=== PATIENT | male | born 1940 | race Caucasian/White ===

== ENCOUNTER 2018-01-10 12:16 | Observation (INO) | payer MEDICARE, OTHER ==
[~2018-01-10] VITALS: Ht 175.3 cm; Wt 93.2 kg
[~2018-01-10 12:16] MED LIST: ALBU8.5H8 IH; ASPI-1094 PO; ATOR80TA PO; BUME1TAB4 PO; CLOP75TA33 PO; DOBUTAMINE IV; FENO145T36 PO; GABA600T2 PO; LINA5TAB4 PO; METO25TA6 PO; PANT-47 PO; POTA10TA15 PO; PRAM1TAB6 PO; TEST60GE2 TOP
[2018-01-10] MEDS ORDERED: aspirin 81mg tab.chew PO ONE (12:20)
[2018-01-10 12:37] LABS: BASOPHILS % (AUTO) 0.3 % (0-1); EOSINOPHILS # (AUTO) 0.2 X10'3 (0-0.9); EOSINOPHILS % (AUTO) 3.7 % (0-6); HEMATOCRIT 51.3 % (42.0-52.0); HEMOGLOBIN 17.1 g/dl (14.0-17.9); LYMPHOCYTES # (AUTO) 0.8 X10'3 (1.1-4.8); LYMPHOCYTES % (AUTO) 13.7 % (21-51); MEAN CORPUSCULAR HEMOGLOBIN 30.5 PG (27.0-31.0); MEAN CORPUSCULAR HGB CONC 33.3 % (33.0-36.5); MEAN CORPUSCULAR VOLUME 91.7 FL (78-98); MEAN PLATELET VOLUME 6.8 FL (7.4-10.4); MONOCYTES # (AUTO) 0.4 X10'3 (0-0.9); MONOCYTES % (AUTO) 7.2 % (2-12); NEUTROPHILS # (AUTO) 4.4 X10'3 (1.8-7.7); NEUTROPHILS % (AUTO) 75.1 % (42-75); PLATELET COUNT 212 X10'3 (140-440); RED BLOOD COUNT 5.59 X10'6 (4.70-6.10); RED CELL DISTRIBUTION WIDTH 15.5 % (11.5-14.5); WHITE BLOOD COUNT 5.8 X10'3 (4.5-11.0)
[2018-01-10 12:55] LABS: ALANINE AMINOTRANSFERASE 30 U/L (12-78); ALBUMIN 4.1 G/DL (3.4-5.0); ALKALINE PHOSPHATASE 92 IU/L (46-116); ANION GAP 8 (8-16); ASPARTATE AMINO TRANSFERASE 32 U/L (10-37); BLOOD UREA NITROGEN 27 MG/DL (7-18); BUN/CREATININE RATIO 18.6 (5.4-32.0); CALCIUM 9.9 MG/DL (8.5-10.1); CHLORIDE 96 MMOL/L (99-107); CREATININE 1.45 MG/DL (0.60-1.10); GLUCOSE 167 MG/DL (70-104); POTASSIUM 3.6 MMOL/L (3.5-5.1); SODIUM 138 MMOL/L (135-145); TOTAL CARBON DIOXIDE 33.9 MMOL/L (24-32); TOTAL PROTEIN 8.1 G/DL (6.4-8.2); eGFR 47 ML/MIN
[2018-01-10 13:04] LABS: MAGNESIUM 1.9 MG/DL (1.5-2.4)
[2018-01-10] MEDS ORDERED: heparin 25,000 UNIT/250ml bag 250 ML IV SCH (13:18)
[2018-01-10] MEDS ORDERED: heparin 10,000 units/1 ML INJ IV PRN (13:20)
[2018-01-10] MEDS ORDERED: heparin 10,000 units/1 ML INJ IV ONE (13:20)
[2018-01-10] MEDS ORDERED: GEMF600T4 PO (13:37)
[2018-01-10] MEDS ORDERED: ASPI-1265 PO (13:37)
[2018-01-10] MEDS ORDERED: SYN0.088T PO (13:37)
[2018-01-10] MEDS ORDERED: WARF2TAB PO (13:37)
[2018-01-10] MEDS ORDERED: CHOL10002 PO (13:37)
[2018-01-10] MEDS ORDERED: ROSU40TA PO (13:37)
[2018-01-10] MEDS ORDERED: MILR20PI IV (13:37)
[2018-01-10] MEDS ORDERED: WARF1TAB PO (13:37)
[2018-01-10 13:45] LABS: INR 2.4 INR; PARTIAL THROMBOPLASTIN TIME 35 SECONDS (22-32); PROTHROMBIN TIME 23.6 SECONDS (9.0-12.0)
[2018-01-10] MEDS ORDERED: potassium Cl 40MEQ/NS 500ml 500 ML IV PRN ×2 (14:05)
[2018-01-10] MEDS ORDERED: acetaminophen 325mg tablet PO PRN (14:05)
[2018-01-10] MEDS ORDERED: magnesium 4gm in 100ml NS 100 ML IV PRN (14:05)
[2018-01-10] MEDS ORDERED: magnesium 1gm/100ml D5W IVPB 100 ML IV PRN (14:05)
[2018-01-10] MEDS ORDERED: potassium Cl 20 mEq SR tablet PO PRN ×2 (14:05)
[2018-01-10] MEDS ORDERED: magnesium Cl slow-release 64mg tablet PO PRN (14:05)
[2018-01-10] MEDS ORDERED: ondansetron/PF 4mg/2ml inj IV PRN (14:05)
[2018-01-10] MEDS ORDERED: docusate sod 100mg capsule PO PRN (14:05)
[2018-01-10 15:21] VITALS: BP 100/58
[2018-01-10 18:00] VITALS: BP 108/70
[2018-01-10] MEDS: heparin, porcine 5000 units/ml vial SQ SCH (20:00)
[2018-01-10] MEDS ORDERED: POTASSIUM CHLORIDE 20 MEQ PO SCH (20:00)
[2018-01-10] MEDS: metoprolol tartrate 25mg tablet PO SCH (20:42)
[2018-01-10] MEDS: gemfibrozil 600mg tablet PO SCH (20:45)
[2018-01-10] MEDS ORDERED: pramipexole 1mg tablet PO SCH (21:00)
[2018-01-10] MEDS ORDERED: atorvastatin 20mg tablet PO SCH (21:00)
[2018-01-10] MEDS ORDERED: warfarin 1mg tablet PO SCH (21:00)
[2018-01-10] MEDS ORDERED: temazepam 15mg capsule PO PRN (21:00)
[2018-01-10] MEDS ORDERED: non-formulary drug (Rosuvastatin Calcium* (Crestor*) 1 TAB) PO SCH (21:00)
[2018-01-10] MEDS: potassium chloride 10mEq ER tablet PO SCH (21:02)
[2018-01-10] MEDS: bumetanide 1mg tablet PO SCH (21:03)
[2018-01-10 22:00] VITALS: BP 113/56
[2018-01-11 01:16] LABS: ALBUMIN 3.5 G/DL (3.4-5.0); ANION GAP 8 (8-16); BLOOD UREA NITROGEN 27 MG/DL (7-18); BUN/CREATININE RATIO 17.8 (5.4-32.0); CALCIUM 9.2 MG/DL (8.5-10.1); CHLORIDE 97 MMOL/L (99-107); CREATININE 1.52 MG/DL (0.60-1.10); GLUCOSE 236 MG/DL (70-104); MAGNESIUM 1.9 MG/DL (1.5-2.4); POTASSIUM 3.1 MMOL/L (3.5-5.1); SODIUM 136 MMOL/L (135-145); eGFR 45 ML/MIN
[2018-01-11 02:00] VITALS: BP 114/65
[2018-01-11 03:01] LABS: BASOPHILS % (AUTO) 0.7 % (0-1); EOSINOPHILS # (AUTO) 0.2 X10'3 (0-0.9); EOSINOPHILS % (AUTO) 2.9 % (0-6); HEMATOCRIT 50.9 % (42.0-52.0); LYMPHOCYTES # (AUTO) 0.8 X10'3 (1.1-4.8); LYMPHOCYTES % (AUTO) 11.3 % (21-51); MEAN CORPUSCULAR HEMOGLOBIN 30.7 PG (27.0-31.0); MEAN CORPUSCULAR HGB CONC 33.5 % (33.0-36.5); MEAN CORPUSCULAR VOLUME 91.6 FL (78-98); MEAN PLATELET VOLUME 7.4 FL (7.4-10.4); MONOCYTES # (AUTO) 0.8 X10'3 (0-0.9); MONOCYTES % (AUTO) 10.8 % (2-12); NEUTROPHILS # (AUTO) 5.4 X10'3 (1.8-7.7); NEUTROPHILS % (AUTO) 74.3 % (42-75); PLATELET COUNT 173 X10'3 (140-440); RED BLOOD COUNT 5.55 X10'6 (4.70-6.10); RED CELL DISTRIBUTION WIDTH 15.9 % (11.5-14.5); WHITE BLOOD COUNT 7.3 X10'3 (4.5-11.0)
[2018-01-11 03:22] LABS: PROTHROMBIN TIME 23.4 SECONDS (9.0-12.0)
[2018-01-11 03:23] LABS: INR 2.4 INR
[2018-01-11 06:42] VITALS: BP 106/68
[2018-01-11] MEDS: heparin, porcine 5000 units/ml vial SQ SCH (07:00)
[2018-01-11] MEDS: potassium chloride 10mEq ER tablet PO SCH (07:10)
[2018-01-11] MEDS: metoprolol tartrate 25mg tablet PO SCH (07:10)
[2018-01-11] MEDS: gemfibrozil 600mg tablet PO SCH (07:11)
[2018-01-11] MEDS: bumetanide 1mg tablet PO SCH (07:11)
[2018-01-11 08:00] VITALS: BP 116/100
[2018-01-11] MEDS ORDERED: K and/or MAG REPLACEMENT MC SCH (08:00)
[2018-01-11] MEDS ORDERED: aspirin 81mg tab.chew PO SCH (08:00)
[2018-01-11] MEDS ORDERED: levoTHYROXINE 25mcg tablet PO SCH (08:00)
[2018-01-11] MEDS ORDERED: pantoprazole 40mg Tablet.DR PO SCH (08:00)
[2018-01-11] MEDS ORDERED: morphine 2 MG/ML inj. syringe IV PRN ×2 (08:35)
[2018-01-11] MEDS ORDERED: LIDOcaine/PRILOcaine 5gm cream TP ONE (08:40)
[2018-01-11] MEDS ORDERED: amiodarone 50MG/ML inj IV ONE (09:30)
[2018-01-11] MEDS ORDERED: WATER IV ONE (09:45)
[2018-01-11] MEDS ORDERED: AMIODARONE IV ONE (09:45)
[2018-01-11] MEDS ORDERED: DEXTROSE 5% IV ONE (09:45)
[2018-01-11 10:00] VITALS: BP 89/47
[2018-01-11 11:46] VITALS: BP 124/103
[2018-01-11] MEDS ORDERED: proCHLORperazine 10 MG/2 ml inj IV ONE (12:20)
[2018-01-11] MEDS ORDERED: HYDR-3964 PO (12:27)
[2018-01-11] MEDS ORDERED: AMIO200T40 PO (12:27)
[2018-01-11] MEDS ORDERED: warfarin 1mg tablet PO SCH (21:00)
== END 2018-01-11 14:35 | disposition home or self-care (01) ==
LOC: ER 12:16 → PCU 3S 14:01
PROVIDERS: ADMIT Internal Medicine; ATTEND Internal Medicine
DX: T82.198A Other mechanical complication of other cardiac electronic device, initial encounter (principal); S46.912A Strain of unspecified muscle, fascia and tendon at shoulder and upper arm level, left arm, initial encounter; I12.9 Hypertensive chronic kidney disease with stage 1 through stage 4 chronic kidney disease, or unspecified chronic kidney disease; E11.22 Type 2 diabetes mellitus with diabetic chronic kidney disease; N18.3 Chronic kidney disease, stage 3 (moderate); E03.9 Hypothyroidism, unspecified; E78.00 Pure hypercholesterolemia, unspecified; I25.10 Atherosclerotic heart disease of native coronary artery without angina pectoris; I95.89 Other hypotension; G47.33 Obstructive sleep apnea (adult) (pediatric); Z66 Do not resuscitate; Z79.01 Long term (current) use of anticoagulants; Z79.84 Long term (current) use of oral hypoglycemic drugs; Z95.810 Presence of automatic (implantable) cardiac defibrillator; X58.XXXA Exposure to other specified factors, initial encounter; Y93.89 Activity, other specified; Y92.89 Other specified places as the place of occurrence of the external cause; Y99.8 Other external cause status
CPT/HCPCS: 36415; 71045; 76882; 80048; 80053; 82948; 83735; 83880; 84484; 85025; 85610; 85730; 87070; 93005; 93306; 96365; 96366; 96375; 96376; 97116; 97162; 97530; 99285; G0378; J0282; J0780; J1644; J2270; J2405; J7060

== ENCOUNTER 2018-02-21 02:48 | Inpatient (IN) | payer MEDICARE, OTHER ==
[~2018-02-21] VITALS: Ht 175.3 cm; Wt 97.0 kg
[~2018-02-21 02:48] MED LIST changes: -ALBU8.5H8 IH; -ASPI-1094 PO; +ASPI-1265 PO; -ATOR80TA PO; +CHOL10002 PO; -CLOP75TA33 PO; -DOBUTAMINE IV; -FENO145T36 PO; +GEMF600T89 PO; +MILR20PI IV; +ROSU40TA PO; +SYN0.088T PO; -TEST60GE2 TOP; +WARF1TAB PO; +WARF2TAB PO
[2018-02-21 03:22] LABS: BASOPHILS % (AUTO) 0.5 % (0-1); EOSINOPHILS # (AUTO) 0.1 X10'3 (0-0.9); EOSINOPHILS % (AUTO) 2.3 % (0-6); HEMATOCRIT 50.5 % (42.0-52.0); HEMOGLOBIN 16.3 g/dl (14.0-17.9); LYMPHOCYTES # (AUTO) 0.9 X10'3 (1.1-4.8); MEAN CORPUSCULAR HEMOGLOBIN 29.4 PG (27.0-31.0); MEAN CORPUSCULAR HGB CONC 32.3 % (33.0-36.5); MEAN CORPUSCULAR VOLUME 91.1 FL (78-98); MEAN PLATELET VOLUME 7.9 FL (7.4-10.4); MONOCYTES # (AUTO) 0.6 X10'3 (0-0.9); NEUTROPHILS % (AUTO) 70.2 % (42-75); PLATELET COUNT 189 X10'3 (140-440); RED BLOOD COUNT 5.54 X10'6 (4.70-6.10); WHITE BLOOD COUNT 5.7 X10'3 (4.5-11.0)
[2018-02-21 03:42] LABS: ALANINE AMINOTRANSFERASE 36 U/L (12-78); ALBUMIN 3.8 G/DL (3.4-5.0); ALBUMIN/GLOBULIN RATIO 1.1 (1.1-1.5); ALKALINE PHOSPHATASE 142 IU/L (46-116); ANION GAP 11 (8-16); ASPARTATE AMINO TRANSFERASE 28 U/L (10-37); BILIRUBIN,TOTAL 1.3 MG/DL (0.1-1.0); BLOOD UREA NITROGEN 34 MG/DL (7-18); BUN/CREATININE RATIO 17.3 (5.4-32.0); CALCIUM 8.9 MG/DL (8.5-10.1); CHLORIDE 96 MMOL/L (99-107); CREATININE 1.96 MG/DL (0.60-1.10); GLUCOSE 120 MG/DL (70-104); POTASSIUM 3.9 MMOL/L (3.5-5.1); SODIUM 137 MMOL/L (135-145); TOTAL CARBON DIOXIDE 29.8 MMOL/L (24-32); TOTAL PROTEIN 7.4 G/DL (6.4-8.2); eGFR 33 ML/MIN
[2018-02-21 03:51] LABS: INR 2.6 INR; PARTIAL THROMBOPLASTIN TIME 34 SECONDS (22-32); PROTHROMBIN TIME 25.5 SECONDS (9.0-12.0)
[2018-02-21] MEDS ORDERED: diphenhydrAMINE 25mg capsule PO PRN (05:20)
[2018-02-21] MEDS ORDERED: morphine 4 MG/ML inj SYRINge IV PRN (05:20)
[2018-02-21] MEDS ORDERED: magnesium hydroxide 30ml (MOM) UD suspension PO PRN (05:20)
[2018-02-21] MEDS ORDERED: metoclopramide 5 mg/ml inj IV PRN (05:20)
[2018-02-21] MEDS ORDERED: acetaminophen 650mg rectal suppository RC PRN (05:20)
[2018-02-21] MEDS ORDERED: HYDROmorphone 1 mg/ml syringe IV PRN (05:20)
[2018-02-21] MEDS ORDERED: mag hydrox/Alum hydrox/simeth 30ml oral suspension PO PRN (05:20)
[2018-02-21] MEDS ORDERED: HYDROcodone/acetaminophen 10/325mg tab PO PRN (05:20)
[2018-02-21] MEDS ORDERED: bisacodyl 10mg suppository rectal RC PRN (05:20)
[2018-02-21] MEDS ORDERED: ondansetron/PF 4mg/2ml inj IV PRN (05:20)
[2018-02-21] MEDS ORDERED: diphenhydrAMINE 50 mg/ml inj IV PRN (05:20)
[2018-02-21] MEDS ORDERED: acetaminophen 325mg tablet PO PRN ×2 (05:20)
[2018-02-21] MEDS ORDERED: CefTRIAXone 2gm/D5W 50ml 50 ML IV ONE (06:05)
[2018-02-21] MEDS: normal saline 1000ml 1,000 ML IV SCH ×2 (06:34→16:12)
[2018-02-21] MEDS: docusate sod 100mg capsule PO SCH ×2 (06:34→20:00)
[2018-02-21 10:15] LABS: ETHANOL < 0.010 GM/DL (0.0-0.010); MAGNESIUM 2.3 MG/DL (1.5-2.4); PHOSPHORUS 3.7 MG/DL (2.3-4.5)
--- NOTE | 2018-02-21 13:57 | NUR ---
RN UNABLE TO TAKE REPORT SAID THEY WILL CALL US
--- NOTE | 2018-02-21 15:30 | NUR ---
patient arrived to ACCE alert, oriented, calm, and cooperative. ambulating independently. denies pain, dizziness, or any issues at this time. home dobutamine pump running. vital signs stable.
[2018-02-21 15:45] VITALS: BP 118/70
[2018-02-21 19:00] VITALS: BP 138/82
[2018-02-21] MEDS: gemfibrozil 600mg tablet PO SCH (20:21)
[2018-02-21] MEDS: gabapentin 300mg capsule PO SCH (20:22)
[2018-02-21] MEDS: potassium Cl 20 mEq SR tablet PO SCH (20:22)
[2018-02-21] MEDS ORDERED: pramipexole 1mg tablet PO ONE (20:35)
[2018-02-21] MEDS ORDERED: warfarin 1mg tablet PO SCH (21:00)
[2018-02-21] MEDS ORDERED: temazepam 15mg capsule PO PRN (21:00)
[2018-02-21] MEDS ORDERED: atorvastatin 20mg tablet PO SCH (21:00)
[2018-02-21] MEDS: bumetanide 1mg tablet PO SCH (21:16)
[2018-02-21 23:00] VITALS: BP 123/68
[2018-02-22] MEDS: normal saline 1000ml 1,000 ML IV SCH ×2 (01:19→11:19)
[2018-02-22 02:00] VITALS: BP 110/74
--- NOTE | 2018-02-22 06:29 | NUR ---
Patient in room MED 308. I have received report from JUAN PABLO Laws and had the opportunity to ask questions and assume patient care.
[2018-02-22 06:30] VITALS: BP 129/64
[2018-02-22 06:52] LABS: BASOPHILS % (AUTO) 0.3 % (0-1); EOSINOPHILS # (AUTO) 0.1 X10'3 (0-0.9); EOSINOPHILS % (AUTO) 2.6 % (0-6); HEMATOCRIT 48.4 % (42.0-52.0); HEMOGLOBIN 15.7 g/dl (14.0-17.9); LYMPHOCYTES # (AUTO) 0.8 X10'3 (1.1-4.8); LYMPHOCYTES % (AUTO) 14.6 % (21-51); MEAN CORPUSCULAR HGB CONC 32.4 % (33.0-36.5); MEAN CORPUSCULAR VOLUME 89.4 FL (78-98); MONOCYTES # (AUTO) 0.6 X10'3 (0-0.9); MONOCYTES % (AUTO) 10.8 % (2-12); NEUTROPHILS # (AUTO) 3.8 X10'3 (1.8-7.7); NEUTROPHILS % (AUTO) 71.7 % (42-75); PLATELET COUNT 175 X10'3 (140-440); RED BLOOD COUNT 5.41 X10'6 (4.70-6.10); RED CELL DISTRIBUTION WIDTH 15.8 % (11.5-14.5); WHITE BLOOD COUNT 5.3 X10'3 (4.5-11.0)
[2018-02-22 07:06] LABS: INR 2.8 INR; PROTHROMBIN TIME 26.6 SECONDS (9.0-12.0)
[2018-02-22 07:11] LABS: ALANINE AMINOTRANSFERASE 31 U/L (12-78); ALBUMIN 3.6 G/DL (3.4-5.0); ALKALINE PHOSPHATASE 128 IU/L (46-116); ANION GAP 12 (8-16); ASPARTATE AMINO TRANSFERASE 21 U/L (10-37); BILIRUBIN,TOTAL 1.2 MG/DL (0.1-1.0); BLOOD UREA NITROGEN 30 MG/DL (7-18); BUN/CREATININE RATIO 17.2 (5.4-32.0); CALCIUM 8.7 MG/DL (8.5-10.1); CHLORIDE 99 MMOL/L (99-107); CHOL/HDL RATIO 4.2 (0.00-4.99); CHOLESTEROL 157 MG/DL (0-200); CREATININE 1.74 MG/DL (0.60-1.10); GLUCOSE 109 MG/DL (70-104); HDL CHOLESTEROL 37 MG/DL (35-60); LDL CHOLESTEROL 100 MG/DL (50-100); POTASSIUM 3.6 MMOL/L (3.5-5.1); SODIUM 141 MMOL/L (135-145); TOTAL CARBON DIOXIDE 29.9 MMOL/L (24-32); TOTAL PROTEIN 7.1 G/DL (6.4-8.2); TRIGLYCERIDES 91 MG/DL (20-135); eGFR 38 ML/MIN
[2018-02-22] MEDS: potassium Cl 20 mEq SR tablet PO SCH (07:53)
[2018-02-22] MEDS: docusate sod 100mg capsule PO SCH ×2 (07:53→07:57)
[2018-02-22] MEDS: gabapentin 300mg capsule PO SCH ×2 (07:54→13:11)
[2018-02-22] MEDS: gemfibrozil 600mg tablet PO SCH (07:57)
[2018-02-22] MEDS: bumetanide 1mg tablet PO SCH (07:58)
[2018-02-22] MEDS ORDERED: pantoprazole 40mg Tablet.DR PO SCH (08:00)
[2018-02-22] MEDS ORDERED: vitamin D (cholecalciferol) 1,000 unit tablet PO SCH (08:00)
[2018-02-22] MEDS ORDERED: levoTHYROXINE 25mcg tablet PO SCH (08:00)
[2018-02-22] MEDS ORDERED: linagliptin 5mg tablet PO SCH (08:00)
[2018-02-22] MEDS ORDERED: aspirin 81mg tab.chew PO SCH (08:00)
--- NOTE | 2018-02-22 10:23 | NUR ---
Called [employer] to have AICD interrogated. They will page out local sales representative supervisor.
[2018-02-22 11:30] VITALS: BP 127/69
[2018-02-22] MEDS ORDERED: METO25TA6 PO (11:31)
--- NOTE | 2018-02-22 13:19 | NUR ---
[employer] arborist representative at bedside to interrogate AICD.
--- NOTE | 2018-02-22 14:43 | NUR ---
AICD functioning properly per [employer] internet sales representative. Pt aware. IV dc'd. No new scripts. Discharged home via wc with family.
--- NOTE | 2018-02-22 14:44 | NUR ---
Pt has appointment with Dr López on March 07.
[2018-02-22] MEDS ORDERED: warfarin 1mg tablet PO SCH (21:00)
[2018-02-22] MEDS ORDERED: pramipexole 1mg tablet PO SCH (21:00)
[2018-02-22] MEDS ORDERED: WARFARIN SODIUM 1.5 MG PO SCH (21:00)
== END 2018-02-22 14:40 | disposition home health service (06) | DRG 682 ==
LOC: ER 02:49 → ED HOLD 05:19 → EDBEDREQ 13:41 → MED 3N 15:40
PROVIDERS: ADMIT Family Medicine; ATTEND Family Medicine
PROC: 5A09357 Assistance with Respiratory Ventilation, Less than 24 Consecutive Hours, Continuous Positive Airway Pressure (ICD-10-PCS; principal; 2018-02-21)
DX: N17.9 Acute kidney failure, unspecified (principal); J18.1 Lobar pneumonia, unspecified organism; R55 Syncope and collapse; E86.1 Hypovolemia; I50.9 Heart failure, unspecified; R00.1 Bradycardia, unspecified; E11.65 Type 2 diabetes mellitus with hyperglycemia; E03.9 Hypothyroidism, unspecified; E78.00 Pure hypercholesterolemia, unspecified; I11.0 Hypertensive heart disease with heart failure; I25.10 Atherosclerotic heart disease of native coronary artery without angina pectoris; Z79.899 Other long term (current) drug therapy; Z79.82 Long term (current) use of aspirin; Z79.890 Hormone replacement therapy; Z79.84 Long term (current) use of oral hypoglycemic drugs; Z82.49 Family history of ischemic heart disease and other diseases of the circulatory system
CPT/HCPCS: 36415; 70450; 71045; 80053; 80061; 80320; 82948; 83036; 83735; 83880; 84100; 84484; 85025; 85610; 85730; 87070; 93005; 93880; 99285; G0378; J0696; J7030

== ENCOUNTER 2018-03-04 15:09 | Emergency (ER) | payer MEDICARE, OTHER ==
[~2018-03-04] VITALS: Ht 175.3 cm; Wt 102.3 kg
[~2018-03-04 15:09] MED LIST changes: +GABA600T13 PO; -GABA600T2 PO
--- NOTE | 2018-03-04 16:10 | NUR ---
ASSUMED CARE OF PATIENT, PATIENT TO ROOM FROM LOBBY. PATIENT DON GOWN AND GIVEN WARM BLANKET. 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 AT BEDSIDE.
[2018-03-04 16:15] LABS: BASOPHILS % (AUTO) 0.3 % (0-1); EOSINOPHILS # (AUTO) 0.1 X10'3 (0-0.9); EOSINOPHILS % (AUTO) 1.3 % (0-6); LYMPHOCYTES # (AUTO) 0.8 X10'3 (1.1-4.8); LYMPHOCYTES % (AUTO) 18.2 % (21-51); MEAN CORPUSCULAR HEMOGLOBIN 29.1 PG (27.0-31.0); MEAN CORPUSCULAR VOLUME 90.9 FL (78-98); MEAN PLATELET VOLUME 7.4 FL (7.4-10.4); MONOCYTES # (AUTO) 0.5 X10'3 (0-0.9); MONOCYTES % (AUTO) 12.4 % (2-12); NEUTROPHILS # (AUTO) 2.8 X10'3 (1.8-7.7); NEUTROPHILS % (AUTO) 67.8 % (42-75); PLATELET COUNT 192 X10'3 (140-440); RED BLOOD COUNT 5.84 X10'6 (4.70-6.10); RED CELL DISTRIBUTION WIDTH 16.4 % (11.5-14.5); WHITE BLOOD COUNT 4.2 X10'3 (4.5-11.0)
[2018-03-04] MEDS ORDERED: meclizine 12.5mg tablet PO ONE (16:25)
[2018-03-04 16:34] LABS: ALANINE AMINOTRANSFERASE 32 U/L (12-78); ALBUMIN 3.8 G/DL (3.4-5.0); ALKALINE PHOSPHATASE 126 IU/L (46-116); ANION GAP 8 (8-16); ASPARTATE AMINO TRANSFERASE 30 U/L (10-37); BILIRUBIN,TOTAL 1.6 MG/DL (0.1-1.0); BLOOD UREA NITROGEN 37 MG/DL (7-18); BUN/CREATININE RATIO 18.1 (5.4-32.0); CALCIUM 8.7 MG/DL (8.5-10.1); CHLORIDE 99 MMOL/L (99-107); CREATININE 2.04 MG/DL (0.60-1.10); GLUCOSE 97 MG/DL (70-104); PARTIAL THROMBOPLASTIN TIME 39 SECONDS (22-32); POTASSIUM 3.8 MMOL/L (3.5-5.1); PROTHROMBIN TIME 29.1 SECONDS (9.0-12.0); SODIUM 139 MMOL/L (135-145); TOTAL CARBON DIOXIDE 32.1 MMOL/L (24-32); TOTAL PROTEIN 7.5 G/DL (6.4-8.2); eGFR 32 ML/MIN
[2018-03-04 16:52] LABS: CLARITY,URINE CLEAR (Clear); COLOR,URINE YELLOW (Yellow); GLUCOSE, URINE NEGATIVE (Neg); KETONES,URINE NEGATIVE (Neg); LEUKOCYTE ESTERASE ,URINE NEGATIVE (Neg); NITRITES, URINE NEGATIVE (Neg); OCCULT BLOOD,URINE MODERATE (Neg); PH,URINE 5.5 (4.8-8.0); PROTEIN,URINE TRACE mg/dl (Neg)
[2018-03-04 16:54] LABS: UA COLLECTION TYPE CLN CATCH MIDSTREAM
[2018-03-04 17:03] LABS: MUCUS STRANDS FEW /LPF (Neg); SQUAMOUS EPITHELIAL CELL,UR FEW /LPF (FEW)
[2018-03-04 17:04] LABS: BACTERIA,URINE NONE SEEN /HPF (Neg); WBC,URINE 0-4 /HPF (0-4)
[2018-03-04] MEDS ORDERED: MECL12.584 PO (17:10)
[2018-03-04 17:20] VITALS: BP 134/54
== END 2018-03-04 17:23 | disposition home or self-care (01) ==
LOC: ER 15:10
DX: R42 Dizziness and giddiness (principal); H55.09 Other forms of nystagmus; I25.10 Atherosclerotic heart disease of native coronary artery without angina pectoris; E78.00 Pure hypercholesterolemia, unspecified; I10 Essential (primary) hypertension; E11.9 Type 2 diabetes mellitus without complications; E03.9 Hypothyroidism, unspecified; Z95.0 Presence of cardiac pacemaker; Z79.01 Long term (current) use of anticoagulants; Z79.899 Other long term (current) drug therapy; Z79.82 Long term (current) use of aspirin
CPT/HCPCS: 36415; 71045; 80053; 81001; 83880; 84145; 84484; 85025; 85610; 85730; 93005; 99284; J8597

== ENCOUNTER 2018-03-19 15:32 | Inpatient (IN) | payer MEDICARE, OTHER ==
[~2018-03-19] VITALS: Ht 177.8 cm; Wt 91.0 kg
[~2018-03-19 15:32] MED LIST changes: +MECL12.584 PO
[2018-03-19 16:27] LABS: BASOPHILS % (AUTO) 0.2 % (0-1); EOSINOPHILS # (AUTO) 0.1 X10'3 (0-0.9); EOSINOPHILS % (AUTO) 0.8 % (0-6); HEMATOCRIT 53.1 % (42.0-52.0); HEMOGLOBIN 17.1 g/dl (14.0-17.9); LYMPHOCYTES # (AUTO) 0.6 X10'3 (1.1-4.8); LYMPHOCYTES % (AUTO) 7.7 % (21-51); MEAN CORPUSCULAR HGB CONC 32.1 % (33.0-36.5); MEAN CORPUSCULAR VOLUME 90.2 FL (78-98); MEAN PLATELET VOLUME 7.4 FL (7.4-10.4); MONOCYTES # (AUTO) 0.8 X10'3 (0-0.9); MONOCYTES % (AUTO) 10.3 % (2-12); NEUTROPHILS # (AUTO) 6.6 X10'3 (1.8-7.7); PLATELET COUNT 193 X10'3 (140-440); RED BLOOD COUNT 5.89 X10'6 (4.70-6.10); RED CELL DISTRIBUTION WIDTH 16.7 % (11.5-14.5); WHITE BLOOD COUNT 8.1 X10'3 (4.5-11.0)
[2018-03-19 16:42] LABS: ALANINE AMINOTRANSFERASE 18 U/L (12-78); ALBUMIN 3.5 G/DL (3.4-5.0); ALBUMIN/GLOBULIN RATIO 0.9 (1.1-1.5); ALKALINE PHOSPHATASE 112 IU/L (46-116); ANION GAP 11 (8-16); ASPARTATE AMINO TRANSFERASE 19 U/L (10-37); BLOOD UREA NITROGEN 36 MG/DL (7-18); BUN/CREATININE RATIO 17.3 (5.4-32.0); CALCIUM 8.8 MG/DL (8.5-10.1); CHLORIDE 95 MMOL/L (99-107); CREATININE 2.08 MG/DL (0.60-1.10); GLUCOSE 135 MG/DL (70-104); POTASSIUM 4.3 MMOL/L (3.5-5.1); SODIUM 135 MMOL/L (135-145); TOTAL CARBON DIOXIDE 29.1 MMOL/L (24-32); TOTAL PROTEIN 7.2 G/DL (6.4-8.2); eGFR 31 ML/MIN
[2018-03-19 17:09] LABS: INR 3.9 INR; PARTIAL THROMBOPLASTIN TIME 42 SECONDS (22-32); PROTHROMBIN TIME 36.8 SECONDS (9.0-12.0)
--- NOTE | 2018-03-19 17:36 | NUR ---
BACK FROM CT SCAN
[2018-03-19] MEDS ORDERED: insulin Lispro (HumaLOG) vial - multi-dose SQ SCH (20:10)
[2018-03-19] MEDS ORDERED: dextrose 50%-water 50ml dispensing syringe IV PRN ×2 (20:10)
[2018-03-19] MEDS ORDERED: dextrose ORAL solution 15 GM/59 ML bottle PO PRN ×2 (20:10)
[2018-03-19] MEDS ORDERED: MESSAGE TO PHARMACY PO ONE (20:10)
[2018-03-19] MEDS ORDERED: mag hydrox/Alum hydrox/simeth 30ml oral suspension PO PRN (20:10)
[2018-03-19] MEDS ORDERED: acetaminophen 325mg tablet PO PRN ×2 (20:10)
[2018-03-19] MEDS ORDERED: magnesium hydroxide 30ml (MOM) UD suspension PO PRN (20:10)
[2018-03-19] MEDS ORDERED: glucagon, human recombinant 1mg kit SUBCUT PRN (20:10)
[2018-03-19] MEDS ORDERED: ondansetron/PF 4mg/2ml inj IV PRN (20:10)
[2018-03-19] MEDS ORDERED: meclizine 12.5mg tablet PO PRN (20:20)
[2018-03-19] MEDS: polyethylene glycol 3350 17gm powd pack PO SCH (21:24)
[2018-03-19] MEDS: furosemide 10 MG/1 ML 10ml inj IV SCH (21:25)
[2018-03-19] MEDS: gabapentin 300mg capsule PO SCH (21:29)
[2018-03-19] MEDS: atorvastatin 20mg tablet PO SCH (21:29)
[2018-03-19 21:30] VITALS: BP 149/93
[2018-03-19 21:45] VITALS: BP 144/84
[2018-03-19 22:00] VITALS: BP 124/96
[2018-03-19] MEDS: insulin glargine (Lantus) pen - multi-dose SQ SCH (22:14)
[2018-03-19 22:15] VITALS: BP 128/69
[2018-03-19] MEDS: pramipexole 1mg tablet PO SCH (22:23)
[2018-03-19] MEDS: HYDROcodone/acetaminophen 5mg/325mg tablet PO PRN (22:23)
[2018-03-19 22:30] VITALS: BP 127/72
[2018-03-19 23:00] VITALS: BP 122/66
--- NOTE | 2018-03-19 23:04 | NUR ---
spoke with dr. handy re plan for am. no PPM prep needed at thist anuradha, unsure of plan due to high INR. orders for Vitamin K, labs, and NPO at midnight. Paracentesis will also depend on INR
[2018-03-19] MEDS ORDERED: phytonadione inj. 1 MG in normal saline 100ml IV soln 99.9 ML IV ONE (23:05)
[2018-03-19] MEDS: DOBUTAMINE IV SCH (23:06)
[2018-03-20] VITALS (11 sets, daily range): BP systolic 100–123; BP diastolic 43–90
--- NOTE | 2018-03-20 06:34 | NUR ---
Patient in room PCU 3026. I have received report from JUAN PABLO Fallon and had the opportunity to ask questions and assume patient care.
--- NOTE | 2018-03-20 06:34 | NUR ---
Problems reprioritized. Patient report given, questions answered & plan of care reviewed with Dinora ALMEIDA.
[2018-03-20] MEDS ORDERED: bumetanide 1mg tablet PO SCH (08:00)
--- NOTE | 2018-03-20 08:03 | NUR ---
Paged Dr. Hernandez. PAGER ID: [phone] MESSAGE: [phone]. Is the Pt. going for a procedure today, need to know if all medications are to be administered. Thanks Isabel [id number] Addendum: 03/20/18 at 0808 by Isabel Da Silva RN Okay to give morning medications per Dr. Hernandez.
[2018-03-20] MEDS: levoTHYROXINE 25mcg tablet PO SCH (08:14)
[2018-03-20] MEDS: furosemide 10 MG/1 ML 10ml inj IV SCH ×2 (08:15→20:00)
[2018-03-20] MEDS: potassium Cl 20 mEq SR tablet PO SCH ×2 (08:16→20:52)
[2018-03-20] MEDS: DOBUTAMINE IV SCH ×2 (08:16→16:31)
[2018-03-20] MEDS: gemfibrozil 600mg tablet PO SCH ×2 (08:16→20:51)
[2018-03-20] MEDS: aspirin 81mg tab.chew PO SCH (08:16)
[2018-03-20] MEDS: gabapentin 300mg capsule PO SCH ×2 (08:17→20:50)
[2018-03-20] MEDS: linagliptin 5mg tablet PO SCH (08:17)
[2018-03-20] MEDS: pantoprazole 40mg Tablet.DR PO SCH (08:17)
[2018-03-20] MEDS: metoprolol tartrate 12.5mg (1/2 tablet) PO SCH ×2 (08:17→20:51)
[2018-03-20] MEDS: vitamin D (cholecalciferol) 1,000 unit tablet PO SCH (08:18)
[2018-03-20] MEDS: polyethylene glycol 3350 17gm powd pack PO SCH ×2 (09:00→20:50)
[2018-03-20 09:22] LABS: HEMATOCRIT 48.3 % (42.0-52.0); HEMOGLOBIN 16.1 g/dl (14.0-17.9); MEAN CORPUSCULAR HEMOGLOBIN 29.4 PG (27.0-31.0); MEAN CORPUSCULAR HGB CONC 33.3 % (33.0-36.5); MEAN CORPUSCULAR VOLUME 88.4 FL (78-98); MEAN PLATELET VOLUME 7.4 FL (7.4-10.4); PLATELET COUNT 168 X10'3 (140-440); RED BLOOD COUNT 5.46 X10'6 (4.70-6.10); RED CELL DISTRIBUTION WIDTH 16.7 % (11.5-14.5); WHITE BLOOD COUNT 5.1 X10'3 (4.5-11.0)
[2018-03-20 09:32] LABS: ALBUMIN 3.3 G/DL (3.4-5.0); ANION GAP 11 (8-16); BLOOD UREA NITROGEN 36 MG/DL (7-18); BUN/CREATININE RATIO 20.9 (5.4-32.0); CALCIUM 8.6 MG/DL (8.5-10.1); CHLORIDE 97 MMOL/L (99-107); CREATININE 1.72 MG/DL (0.60-1.10); GLUCOSE 93 MG/DL (70-104); POTASSIUM 3.4 MMOL/L (3.5-5.1); SODIUM 137 MMOL/L (135-145); TOTAL CARBON DIOXIDE 28.7 MMOL/L (24-32); eGFR 39 ML/MIN
[2018-03-20 09:34] LABS: INR 2.2 INR; PROTHROMBIN TIME 21.2 SECONDS (9.0-12.0)
[2018-03-20 09:48] LABS: ANISOCYTOSIS 1+; GIANT PLATELET FEW; LARGE PLATELETS FEW; PLATELET ESTIMATE NORMAL; TOTAL CELLS COUNTED 100
[2018-03-20] MEDS ORDERED: vancomycin 1,000mg inj ONE (11:05)
[2018-03-20] MEDS ORDERED: lidocaine 1%/epinephrine 1:100,000 injection 50ml vial ONE (11:05)
[2018-03-20] MEDS ORDERED: fentaNYL/PF 50MCG/1 ML 2ML syringe ONE (11:05)
[2018-03-20] MEDS ORDERED: cefazolin/dext.iso 2gm/50ml 50 ML IV ONE (11:05)
[2018-03-20] MEDS ORDERED: midazolam 2 mg/2 ml injection ONE (11:05)
[2018-03-20] MEDS ORDERED: iohexol 350 MG/ML 50ML vial IV ONE (12:08)
[2018-03-20] MEDS ORDERED: phytonadione inj. 1 MG in normal saline 100ml IV soln 99.9 ML IV ONE (15:50)
--- NOTE | 2018-03-20 18:42 | NUR ---
Problems reprioritized. Patient report given, questions answered & plan of care reviewed with Veto RN.
--- NOTE | 2018-03-20 18:42 | NUR ---
[place] documentation: I have reviewed and agree with all interventions, assessments performed and documented by JUAN PABLO Hall. [place] Medication Administration: For this medication-pass time frame, all medication were reviewed, dispensed, administered and documented per hospital policy by JUAN PABLO Hall.
[2018-03-20] MEDS: atorvastatin 20mg tablet PO SCH (20:51)
[2018-03-20] MEDS: pramipexole 1mg tablet PO SCH (20:51)
[2018-03-20] MEDS: insulin glargine (Lantus) pen - multi-dose SQ SCH (21:00)
[2018-03-21] VITALS (15 sets, daily range): BP systolic 110–139; BP diastolic 58–79
[2018-03-21] MEDS: HYDROcodone/acetaminophen 5mg/325mg tablet PO PRN (01:14)
[2018-03-21] MEDS: metoprolol tartrate 12.5mg (1/2 tablet) PO SCH ×2 (08:00→20:58)
[2018-03-21] MEDS: linagliptin 5mg tablet PO SCH (08:09)
[2018-03-21] MEDS: pantoprazole 40mg Tablet.DR PO SCH (08:09)
[2018-03-21] MEDS: gemfibrozil 600mg tablet PO SCH ×2 (08:09→20:58)
[2018-03-21] MEDS: aspirin 81mg tab.chew PO SCH (08:09)
[2018-03-21] MEDS: HYDROcodone/acetaminophen 10/325mg tab PO PRN ×4 (08:09→22:54)
[2018-03-21] MEDS: potassium Cl 20 mEq SR tablet PO SCH ×2 (08:09→20:58)
[2018-03-21] MEDS: vitamin D (cholecalciferol) 1,000 unit tablet PO SCH (08:09)
[2018-03-21] MEDS: levoTHYROXINE 25mcg tablet PO SCH (08:11)
[2018-03-21] MEDS: gabapentin 300mg capsule PO SCH ×2 (08:11→20:58)
[2018-03-21] MEDS: furosemide 10 MG/1 ML 10ml inj IV SCH ×2 (08:13→20:59)
[2018-03-21] MEDS ORDERED: bisacodyl 10mg suppository rectal RC STA (08:56)
[2018-03-21] MEDS ORDERED: polyethylene glycol 3350 17gm powd pack PO ONE (09:00)
[2018-03-21 09:29] LABS: BASOPHILS % (AUTO) 0.6 % (0-1); EOSINOPHILS # (AUTO) 0.1 X10'3 (0-0.9); EOSINOPHILS % (AUTO) 1.8 % (0-6); HEMATOCRIT 50.1 % (42.0-52.0); HEMOGLOBIN 16.2 g/dl (14.0-17.9); LYMPHOCYTES # (AUTO) 0.5 X10'3 (1.1-4.8); MEAN CORPUSCULAR HGB CONC 32.2 % (33.0-36.5); MEAN CORPUSCULAR VOLUME 89.9 FL (78-98); MEAN PLATELET VOLUME 7.3 FL (7.4-10.4); MONOCYTES # (AUTO) 0.7 X10'3 (0-0.9); MONOCYTES % (AUTO) 12.2 % (2-12); NEUTROPHILS # (AUTO) 4.1 X10'3 (1.8-7.7); NEUTROPHILS % (AUTO) 75.4 % (42-75); PLATELET COUNT 181 X10'3 (140-440); RED BLOOD COUNT 5.57 X10'6 (4.70-6.10); RED CELL DISTRIBUTION WIDTH 16.6 % (11.5-14.5); WHITE BLOOD COUNT 5.5 X10'3 (4.5-11.0)
[2018-03-21 09:43] LABS: ALBUMIN 3.3 G/DL (3.4-5.0); ANION GAP 10 (8-16); BLOOD UREA NITROGEN 33 MG/DL (7-18); BUN/CREATININE RATIO 20.8 (5.4-32.0); CHLORIDE 97 MMOL/L (99-107); CREATININE 1.59 MG/DL (0.60-1.10); GLUCOSE 101 MG/DL (70-104); POTASSIUM 3.8 MMOL/L (3.5-5.1); SODIUM 138 MMOL/L (135-145); TOTAL CARBON DIOXIDE 31.4 MMOL/L (24-32); eGFR 42 ML/MIN
[2018-03-21 09:56] LABS: INR 1.3 INR; PROTHROMBIN TIME 13.3 SECONDS (9.0-12.0)
--- NOTE | 2018-03-21 17:02 | NUR ---
CXR for [id number] Bartolome s/p Alfreda thank you page sent to radiology
--- NOTE | 2018-03-21 18:22 | NUR ---
Problems reprioritized. Patient report given, questions answered & plan of care reviewed with JUAN PABLO Lawrence.
[2018-03-21] MEDS: pramipexole 1mg tablet PO SCH (20:58)
[2018-03-21] MEDS: atorvastatin 20mg tablet PO SCH (20:58)
[2018-03-21] MEDS: insulin glargine (Lantus) pen - multi-dose SQ SCH (21:00)
[2018-03-21] MEDS: polyethylene glycol 3350 17gm powd pack PO SCH (21:08)
[2018-03-22 03:00] VITALS: BP 100/57
[2018-03-22 05:18] LABS: BASOPHILS % (AUTO) 0.3 % (0-1); EOSINOPHILS # (AUTO) 0.1 X10'3 (0-0.9); EOSINOPHILS % (AUTO) 2.2 % (0-6); HEMATOCRIT 44.6 % (42.0-52.0); HEMOGLOBIN 14.6 g/dl (14.0-17.9); LYMPHOCYTES # (AUTO) 0.7 X10'3 (1.1-4.8); LYMPHOCYTES % (AUTO) 14.8 % (21-51); MEAN CORPUSCULAR HGB CONC 32.6 % (33.0-36.5); MEAN CORPUSCULAR VOLUME 88.8 FL (78-98); MEAN PLATELET VOLUME 7.7 FL (7.4-10.4); MONOCYTES # (AUTO) 0.7 X10'3 (0-0.9); MONOCYTES % (AUTO) 13.5 % (2-12); NEUTROPHILS # (AUTO) 3.3 X10'3 (1.8-7.7); NEUTROPHILS % (AUTO) 69.2 % (42-75); PLATELET COUNT 152 X10'3 (140-440); RED BLOOD COUNT 5.02 X10'6 (4.70-6.10); WHITE BLOOD COUNT 4.8 X10'3 (4.5-11.0)
[2018-03-22 05:42] LABS: ALBUMIN 2.8 G/DL (3.4-5.0); ANION GAP 7 (8-16); BLOOD UREA NITROGEN 29 MG/DL (7-18); BUN/CREATININE RATIO 17.4 (5.4-32.0); CALCIUM 8.3 MG/DL (8.5-10.1); CHLORIDE 100 MMOL/L (99-107); CREATININE 1.67 MG/DL (0.60-1.10); GLUCOSE 98 MG/DL (70-104); POTASSIUM 3.7 MMOL/L (3.5-5.1); SODIUM 139 MMOL/L (135-145); TOTAL CARBON DIOXIDE 32.2 MMOL/L (24-32); eGFR 40 ML/MIN
[2018-03-22 06:10] LABS: INR 1.3 INR; PROTHROMBIN TIME 13.3 SECONDS (9.0-12.0)
--- NOTE | 2018-03-22 06:16 | NUR ---
Patient in room PCU 3026. I have received report from Antwon ALMEIDA and had the opportunity to ask questions and assume patient care. Will continue to monitor patient.
[2018-03-22 07:00] VITALS: BP 99/58
[2018-03-22] MEDS: HYDROcodone/acetaminophen 10/325mg tab PO PRN (07:31)
[2018-03-22] MEDS: gabapentin 300mg capsule PO SCH (07:32)
[2018-03-22] MEDS: linagliptin 5mg tablet PO SCH (07:32)
[2018-03-22] MEDS: pantoprazole 40mg Tablet.DR PO SCH (07:32)
[2018-03-22] MEDS: potassium Cl 20 mEq SR tablet PO SCH (07:32)
[2018-03-22] MEDS: levoTHYROXINE 25mcg tablet PO SCH (07:32)
[2018-03-22] MEDS: furosemide 10 MG/1 ML 10ml inj IV SCH (07:32)
[2018-03-22] MEDS: vitamin D (cholecalciferol) 1,000 unit tablet PO SCH (07:33)
[2018-03-22] MEDS: gemfibrozil 600mg tablet PO SCH (07:33)
[2018-03-22] MEDS: metoprolol tartrate 12.5mg (1/2 tablet) PO SCH (07:33)
[2018-03-22] MEDS: aspirin 81mg tab.chew PO SCH (07:33)
[2018-03-22] MEDS: DOBUTAMINE IV SCH (07:39)
[2018-03-22 11:00] VITALS: BP 103/51
[2018-03-22] MEDS ORDERED: CEPH500C5 PO (11:51)
--- NOTE | 2018-03-22 15:05 | NUR ---
Patient discharged. Patient received all discharge education and information before signing necessary paperwork. Patient declined a follow up appt scheduled by RN. Bedside monitoring removed, IV discontinued with catheter in tact, all patient belongings packed up and sent home with patient including home Dobutamine pump. Patient wheeled down to lobby and escorted home in private vehicle.
== END 2018-03-22 15:15 | disposition home health service (06) | DRG 245 ==
LOC: ER 15:33 → ED HOLD 20:10 → PCU 3S 21:37
PROVIDERS: ADMIT Hospitalist; ATTEND Family Medicine
PROC: 0JH608Z Insertion of Defibrillator Generator into Chest Subcutaneous Tissue and Fascia, Open Approach (ICD-10-PCS; 2018-03-20)
PROC: 0JWT0PZ Revision of Cardiac Rhythm Related Device in Trunk Subcutaneous Tissue and Fascia, Open Approach (ICD-10-PCS; 2018-03-20)
PROC: 0JPT0PZ Removal of Cardiac Rhythm Related Device from Trunk Subcutaneous Tissue and Fascia, Open Approach (ICD-10-PCS; 2018-03-20)
PROC: 0W993ZZ Drainage of Right Pleural Cavity, Percutaneous Approach (ICD-10-PCS; principal; 2018-03-21)
PROC: 5A09357 Assistance with Respiratory Ventilation, Less than 24 Consecutive Hours, Continuous Positive Airway Pressure (ICD-10-PCS; 2018-03-21)
DX: I13.0 Hypertensive heart and chronic kidney disease with heart failure and stage 1 through stage 4 chronic kidney disease, or unspecified chronic kidney disease (principal); I50.33 Acute on chronic diastolic (congestive) heart failure; N17.9 Acute kidney failure, unspecified; J90 Pleural effusion, not elsewhere classified; N18.9 Chronic kidney disease, unspecified; E78.00 Pure hypercholesterolemia, unspecified; I25.10 Atherosclerotic heart disease of native coronary artery without angina pectoris; I25.5 Ischemic cardiomyopathy; E03.9 Hypothyroidism, unspecified; E11.22 Type 2 diabetes mellitus with diabetic chronic kidney disease; K59.00 Constipation, unspecified; I95.9 Hypotension, unspecified; R55 Syncope and collapse; E78.5 Hyperlipidemia, unspecified; S20.212A Contusion of left front wall of thorax, initial encounter; W18.39XA Other fall on same level, initial encounter; Z95.810 Presence of automatic (implantable) cardiac defibrillator; Z91.81 History of falling; Y93.89 Activity, other specified; Y92.89 Other specified places as the place of occurrence of the external cause; Y99.8 Other external cause status
CPT/HCPCS: 32555; 33216; 33228; 33262; 36415; 70450; 71045; 74176; 80048; 80053; 82140; 82948; 83880; 84484; 85025; 85610; 85730; 87070; 88108; 88305; 93005; 97116; 97161; 97530; 99152; 99153; 99285; A4565; A4620; C1769; C1785; C1898; G0378; J0690; J1815; J1940; J2250; J3010; J3370; J3430; J3490; J7030; Q9967

== ENCOUNTER 2018-06-02 15:56 | Emergency (ER) | payer MEDICARE, OTHER ==
[~2018-06-02] VITALS: Ht 175.3 cm; Wt 95.0 kg
[~2018-06-02 15:56] MED LIST changes: +CEPH500C5 PO
[2018-06-02] MEDS ORDERED: ondansetron/PF 4mg/2ml inj IV ONE (16:45)
[2018-06-02 17:35] LABS: BASOPHILS % (AUTO) 0.6 % (0-1); EOSINOPHILS # (AUTO) 0.2 X10'3 (0-0.9); EOSINOPHILS % (AUTO) 2.8 % (0-6); HEMATOCRIT 55.3 % (42.0-52.0); HEMOGLOBIN 17.7 g/dl (14.0-17.9); LYMPHOCYTES # (AUTO) 0.8 X10'3 (1.1-4.8); LYMPHOCYTES % (AUTO) 11.2 % (21-51); MEAN CORPUSCULAR HEMOGLOBIN 28.9 PG (27.0-31.0); MEAN CORPUSCULAR HGB CONC 32.1 g/dL (33.0-36.5); MEAN CORPUSCULAR VOLUME 90.1 FL (78-98); MEAN PLATELET VOLUME 7.6 FL (7.4-10.4); MONOCYTES # (AUTO) 0.7 X10'3 (0-0.9); MONOCYTES % (AUTO) 10.6 % (2-12); NEUTROPHILS % (AUTO) 74.8 % (42-75); PLATELET COUNT 237 X10'3 (140-440); RED BLOOD COUNT 6.13 X10'6 (4.70-6.10); RED CELL DISTRIBUTION WIDTH 20.6 % (11.5-14.5); WHITE BLOOD COUNT 6.7 X10'3 (4.5-11.0)
[2018-06-02 17:52] LABS: ALANINE AMINOTRANSFERASE 17 U/L (12-78); ALBUMIN 3.6 G/DL (3.4-5.0); ALKALINE PHOSPHATASE 129 IU/L (46-116); ANION GAP 12 (8-16); ASPARTATE AMINO TRANSFERASE 30 U/L (10-37); BILIRUBIN,TOTAL 3.7 MG/DL (0.1-1.0); BLOOD UREA NITROGEN 34 MG/DL (7-18); BUN/CREATININE RATIO 15.2 (5.4-32.0); CALCIUM 9.5 MG/DL (8.5-10.1); CHLORIDE 95 MMOL/L (99-107); CREATININE 2.24 MG/DL (0.60-1.10); GLUCOSE 141 MG/DL (70-104); POTASSIUM 4.2 MMOL/L (3.5-5.1); SODIUM 134 MMOL/L (135-145); TOTAL CARBON DIOXIDE 27.1 MMOL/L (24-32); eGFR 28 ML/MIN
[2018-06-02 17:57] LABS: ALBUMIN/GLOBULIN RATIO 0.8 (1.1-1.5)
[2018-06-02 18:00] LABS: LIPASE 126 U/L (73-393); TROPONIN I 0.17 NG/ML (0.0-0.05)
[2018-06-02] MEDS ORDERED: proCHLORperazine 10 MG/2 ml inj IV ONE (18:05)
[2018-06-02] MEDS ORDERED: diphenhydrAMINE 50 mg/ml inj IV ONE (18:05)
--- NOTE | 2018-06-02 18:10 | NUR ---
BELGICA AT BEDSIDE TESTING PACEMAKER WITH DEFIB, NOT ABLE TO DETECT PACEMAKER. WILL CALL [facility] FOR INST.
[2018-06-02 18:14] LABS: COLOR,URINE YELLOW (Yellow); GLUCOSE, URINE 100 mg/dl (Neg); KETONES,URINE NEGATIVE (Neg); LEUKOCYTE ESTERASE ,URINE NEGATIVE (Neg); NITRITES, URINE NEGATIVE (Neg); OCCULT BLOOD,URINE SMALL (Neg); PH,URINE 5.5 (4.8-8.0); PROTEIN,URINE 100 mg/dl (Neg)
[2018-06-02 18:22] LABS: UA COLLECTION TYPE FOLEY CATH
[2018-06-02 18:23] LABS: CLARITY,URINE SLIGHTLY CLOUDY (Clear)
[2018-06-02 18:24] LABS: AMORPHOUS URATES 1+; BACTERIA,URINE FEW /HPF (Neg); RBC,URINE 0-2 /HPF (0-2); SQUAMOUS EPITHELIAL CELL,UR FEW /LPF (FEW); WBC,URINE 0-4 /HPF (0-4)
--- NOTE | 2018-06-02 18:30 | NUR ---
BLAIR FROM [facility] CALLED WILL BE HERE IN ABOUT 1/2HR
--- NOTE | 2018-06-02 18:45 | NUR ---
BACK FROM CT SCAN WITH NURSE. PT TOLERATED WELL.
[2018-06-02] MEDS ORDERED: normal saline 1000ML IV soln IVB ONE (18:55)
--- NOTE | 2018-06-02 19:08 | NUR ---
rain from [employer] is at bedside.
[2018-06-02] MEDS ORDERED: pramipexole 0.25mg tablet PO SCH (19:15)
[2018-06-02] MEDS ORDERED: pramipexole 0.25mg tablet PO ONE (19:15)
[2018-06-02] MEDS ORDERED: COU1T PO (19:19)
[2018-06-02] MEDS ORDERED: acetaminophen 325mg tablet PO ONE (19:35)
--- NOTE | 2018-06-02 19:58 | NUR ---
CHIP FROM [facility] CALLED AND SAYS HE HAS FIXED THE PACER/DEFIB TRANSMISSION PROBLEM.
[2018-06-02] MEDS ORDERED: mag hydrox/Alum hydrox/simeth 30ml oral suspension PO PRN (20:20)
[2018-06-02] MEDS ORDERED: ondansetron/PF 4mg/2ml inj IV PRN (20:20)
[2018-06-02] MEDS ORDERED: acetaminophen 325mg tablet PO PRN (20:20)
[2018-06-02] MEDS ORDERED: magnesium hydroxide 30ml (MOM) UD suspension PO PRN (20:20)
--- NOTE | 2018-06-02 21:00 | NUR ---
PT'S BASE RATE INCREASED FROM 40
[2018-06-02] MEDS ORDERED: furosemide 10 MG/1 ML 10ml inj IV ONE (21:15)
[2018-06-02] MEDS ORDERED: LINA5TAB4 PO (21:21)
--- NOTE | 2018-06-02 21:21 | NUR ---
ADMITTING MD LEFT BEDSIDE. FAMILY WENT HOME. PT RESTING IN BED. LIGHTS DIMMED TO PROMOTE COMFORT.
--- NOTE | 2018-06-02 22:12 | NUR ---
CENTRAL LINE DRESSING CHANGE NEEDS TO HAPPEN ON SUNDAY.06/03
--- NOTE | 2018-06-02 23:19 | NUR ---
PT REPORTED THAT HE NEEDED TO URINATE, AND INSISTED THAT HE STOOD UP AT BEDSIDE EVEN THOUGH HE HAS A JENNINGS CATH IN. TECH ASSISTED ME IN HELPING PT TO BEDSIDE TO APPEASE HIM. PT BLADDER SCANNED TO ENSURE THERE WAS NOT A BLOCKAGE. NO FLUID IN BLADDER. VELEZ URINE COMING FROM CATH.
--- NOTE | 2018-06-02 23:21 | NUR ---
PHARMACY DOWN TO ASSESS PT'S MEDICATION PUMP. MEDICATED THAT THE FAMILY TOLD US HE WAS TAKING IS IN CORRECT. PT IS ACTUALLY TAKING DOBUTAMINE 1500MG/300ML 2.5MCG/KG/MIN
[2018-06-02] MEDS ORDERED: [UNRECOGNIZED DRUG - CODE] IV (23:22)
[2018-06-02] MEDS ORDERED: [UNRECOGNIZED DRUG - CODE] (23:22)
--- NOTE | 2018-06-03 00:24 | NUR ---
MD PAGED FOR PT'S SOB. RESPIRATORY PAGED FOR PT FOR CPAP/BIPAP.
[2018-06-03 03:05] VITALS: BP 95/59
--- NOTE | 2018-06-03 04:19 | NUR ---
AT APPROX 0338 PT HAD WHAT APPEARED TO BE A WITNESSED CLONIC-TONIC SEIZURE LASTING APPROX 30 SECONDS TO 1 MINUTE, PT HAS NO KNOWN HISTORY OF SEIZURE, PT PULSE CHECK WITH NO PALPIBLE RADIAL OR CAROTID PULSE, EKG SHOWED ASYSTOLIC RHYTHM, I REASSESSED PATIENTS DOBUTAMINE DRIP WHICH WAS RUNNING PROPERLY AND HE WAS ON BIPAP WHICH WAS AUTOMATICALLY VENTILATING HIM, PT NOTED TO HAVE VALID DNR WHICH WAS AGREED UPON BY THE PATIENT AND HIS FAMILY EARLIER IN THE EVENING AND SIGNED BY THE HOSPITALIST. NO COMPRESSIONS STARTED. PT BGL 76. MD TRUONG AT BEDSIDE, AGREES PATIENT IS IN CARDIAC ARREST VERIFIED BY ABSENCE HEART TONES, NO CARDIAC MOVEMENT ON THE ULTRASOUND,FIXED/DILATED PUPILS, ASYSTOLE WITH PACER SPIKES IN 3 LEADS DOCUMENTED. MD TRUONG DECLARED TIME OF AT 0400. HOSPITALIST INFORMED OF PATIENT , CHARGE SHAYLEE ATTEMPTING TO CONTACT FAMILY.
--- NOTE | 2018-06-03 04:43 | NUR ---
MD CHO TO CONTACT FAMILY.
--- NOTE | 2018-06-03 05:05 | NUR ---
JUAN PABLO LAST CONTACTED DONOR NETWORK WHO IS INTERESTED IN CONTACTING THE FAMILY FOR POSSIBLE DONATION.
--- NOTE | 2018-06-03 06:38 | NUR ---
Assumed care of patient. Awaiting patient's to arrive at bedside to determine arrangements. Per night villa Prasad and landscape artist have all been contact.
[2018-06-03] MEDS ORDERED: furosemide 10 MG/1 ML 10ml inj IV SCH (08:00)
--- NOTE | 2018-06-03 09:09 | NUR ---
called and spoke to supervisor in charge Kelly, who explained patient at this time. requested [facility] on [address] for arrangements.
--- NOTE | 2018-06-03 09:13 | NUR ---
[facility] on [address] contacted and will arraive shortly.
== END 2018-06-03 10:06 | disposition expired ==
LOC: ER 15:56 → UNDOADMIN 20:18 → ED HOLD 20:18 → CANBEDREQ 06-03 05:47
DX: R00.1 Bradycardia, unspecified (principal); R06.02 Shortness of breath; R11.2 Nausea with vomiting, unspecified; I25.10 Atherosclerotic heart disease of native coronary artery without angina pectoris; E78.00 Pure hypercholesterolemia, unspecified; E03.9 Hypothyroidism, unspecified; I13.0 Hypertensive heart and chronic kidney disease with heart failure and stage 1 through stage 4 chronic kidney disease, or unspecified chronic kidney disease; E11.22 Type 2 diabetes mellitus with diabetic chronic kidney disease; N18.9 Chronic kidney disease, unspecified; I50.9 Heart failure, unspecified; Z79.82 Long term (current) use of aspirin; Z79.899 Other long term (current) drug therapy; Z79.01 Long term (current) use of anticoagulants; Z99.81 Dependence on supplemental oxygen
CPT/HCPCS: 36415; 71045; 74176; 80053; 81001; 82948; 83690; 83880; 84484; 85025; 93005; 94660; 94760; 96361; 96374; 96375; 99285; J0780; J1200; J1940; J2405; J7030; 99284; G0378